=== PATIENT | male | born 1980 ===

== ENCOUNTER 2017-01-13 00:08 | Emergency (ER) | payer BC ==
[2017-01-13] MEDS ORDERED: Haloperidol 1 MG Tab PO ONE (00:22)
--- NOTE | 2017-01-13 00:35 | EDM.PDOC ---
ED HPI Behavioral Health - General Chief Complaint: Behavioral/Psych Stated Complaint: suicidal Time Seen by Provider: 01/13/17 00:08 Source of Information: Reports: Patient, EMS Exam Limitations: Reports: Altered mental status - History of Present Illness INITIAL COMMENTS - FREE TEXT/NARRATIVE: Patient has been having mental health issues for at least a year, and presents with the C/O hearing multiple voices that are "good" and "bad". He took a power drill and abraded his right wrist and right side of neck tonight. He asked for the garnett room worker to put cuffs on him because he couldn't trust himself. Unclear if he is suicidal. Lives with mother. Onset of Symptoms: Reports: unknown/unsure Severity: moderate Context, Behavioral Health: Reports: other (lives with mother) Associated Symptoms: Reports: decreased concentration, hallucinations, auditory , insomnia, suicidal thought, other (memory loss, feeling of lost time, generally confused) - Related Data Allergies Allergy/AdvReac Type Severity Reaction Status Date / Time No Known Allergies Allergy Verified 01/13/17 00:25 Home Medications: Home Meds . [No Known Home Meds] 01/13/17 [History] ED ROS GENERAL - Review of Systems Review Of Systems: See Below Constitutional: Reports: no symptoms HEENT: Reports: No symptoms Respiratory: Reports: No Symptoms Cardiovascular: Reports: No symptoms Endocrine: Reports: no symptoms GI/Abdominal: Reports: No symptoms : Reports: no symptoms Musculoskeletal: Reports: no symptoms Skin: Reports: no symptoms Neurological: Reports: No Symptoms Psychiatric: Reports: Suicidal ideation, Other (auditory hallucinations) Hematologic/Lymphatic: Reports: no symptoms Immunologic: Reports: no symptoms Free text/narrative/comment: Not a terribly reliable history. Gets confused and tangential easily. ED EXAM, BEHAVIORAL HEALTH - Physical Exam Exam: See Below Exam Limited By: Altered mental status General Appearance: alert, WD/WN, no apparent distress Eye Exam: bilateral eye: EOMI Ears: normal external exam, hearing grossly normal Nose: normal inspection, normal mucosa Throat/Mouth: Normal inspection, Normal oropharynx, Normal voice, No airway compromise Head: atraumatic, normocephalic Neck: normal inspection, supple, non-tender, full range of motion. No: lymphadenopathy (L), lymphadenopathy (R), thyromegaly Respiratory/Chest: no respiratory distress, lungs clear, normal breath sounds, no accessory muscle use Cardiovascular: normal peripheral pulses, regular rate, rhythm, no JVD, no murmur GI/Abdominal: soft, non tender, no organomegaly. No: distended, guarding Back Exam: normal inspection, full range of motion. No: CVA tenderness (L), CVA tenderness (R) Extremities: normal inspection, normal range of motion, non-tender, normal capillary refill Neurological: alert, CN II-XII intact, normal gait, no motor/sensory deficits, oriented x 3, disoriented to time, inattentive, memory loss recent events. No: ataxia, tongue deviation (L), tongue deviation (R) Psychiatric: alert, flat affect, disoriented (mostly to time), inattentive ( zones out (listening to voices)), suicidal thoughts, tangential thoughts, auditory hallucinations (significant), visual hallucinations (delusions more accurately), other (thought process and content significantly altered). No: depressed mood, incoherent, restless, tearful, agitated, non-communicative, poor eye contact, uncooperative, withdrawn, flight of ideas, homicidal thoughts , phobic, muslim delusions, suicidal plan, grandiose thoughts, pressured speech, paranoid thoughts, threatening behavior Skin Exam: Warm, Dry, Intact, Normal color, No rash, Other (very minor abrasion on right wrist and right/anterior neck - Look at lease a day old) COURSE, BEHAVIORAL HEALTH COMP - Course Vital Signs: Last Vital Signs Temp 36.8 C 01/13/17 00:59 Pulse 83 01/13/17 00:57 Resp 16 01/13/17 00:57 BP 142/88 H 01/13/17 00:57 Pulse Ox 98 01/13/17 00:57 Orders, Labs, Meds: Active Orders 24 hr Category Date Time Status RPR [REF] Stat Lab 01/13/17 00:45 Received Laboratory Tests 01/13/17 01/13/17 01/13/17 Range/Units 00:45 00:45 00:50 WBC 9.2 (4.0-10.2) K/uL RBC 5.73 H (4.33-5.41) M/uL Hgb 17.4 H (13.1-16.8) g/dL Hct 51.2 H (39.0-49.0) % MCV 89.4 (84.0-98.0) fL MCH 30.4 (28.2-33.3) pg MCHC 34.0 (31.7-36.0) g/dL RDW 13.3 (11.2-14.1) % Plt Count 249 (150-350) K/uL Neut % (Auto) 56.9 (45.0-80.0) % Lymph % (Auto) 32.7 (10.0-50.0) % Zapata % (Auto) 9.3 (2.0-14.0) % Eos % (Auto) 0.4 (0.0-5.0) % Baso % (Auto) 0.7 (0.0-2.0) % Neut # (Auto) 5.21 (1.40-7.00) K/uL Lymph # (Auto) 2.99 (0.50-3.50) K/uL Zapata # (Auto) 0.85 (0.00-1.00) K/uL Eos # (Auto) 0.04 (0.00-0.50) K/uL Baso # (Auto) 0.06 (0.00-0.20) K/uL Sodium 143 (136-145) mmol/L Potassium 3.9 (3.5-5.1) mmol/L Chloride 106 (98-107) mmol/L Carbon Dioxide 27.5 (21.0-32.0) mmol/L BUN 12 (7-18) mg/dL Creatinine 0.84 (0.51-1.17) mg/dL Est Cr Clr Drug Dosing 129.48 mL/min Estimated GFR (MDRD) > 60 mL/min Glucose 105 (74-106) mg/dL Calcium 9.3 (8.5-10.1) mg/dL Total Bilirubin 0.7 (0.2-1.0) mg/dL AST 26 (15-37) U/L ALT 52 (12-78) U/L Alkaline Phosphatase 61 (46-116) IU/L Total Protein 8.1 (6.4-8.2) g/dL Albumin 4.5 (3.4-5.0) g/dL TSH, Ultra Sensitive 1.003 (0.358-3.740) mIU/mL Specimen Type Urine Color Urine Appearance Urine pH (5.0-9.0) Ur Specific Halls (1.005-1.030) Urine Protein (NEGATIVE) mg/dL Urine Glucose (UA) (NEGATIVE) mg/dL Urine Ketones (NEGATIVE) mg/dL Urine Occult Blood (NEGATIVE) Urine Nitrite (NEGATIVE) Urine Bilirubin (NEGATIVE) Urine Urobilinogen (0.2-1.0) E.U./dL Ur Leukocyte Esterase (NEGATIVE) Urine RBC /HPF Urine WBC /HPF Ur Epithelial Cells /LPF Urine Bacteria (NONE TO FEW) /HPF Urine Mucus (NEGATIVE) /LPF Urine Opiates Screen Negative (NEGATIVE) Urine Methadone Screen Negative (NEGATIVE) U Acetaminophen Screen Negative (NEGATIVE) Ur Barbiturates Screen Negative (NEGATIVE) Ur Tricyclics Screen Negative (NEGATIVE) Ur Phencyclidine Scrn Negative (NEGATIVE) Ur Amphetamine Screen Negative (NEGATIVE) U Methamphetamines Scrn Negative (NEGATIVE) U Benzodiazepines Scrn Negative (NEGATIVE) U Cocaine Metab Screen Negative (NEGATIVE) U Marijuana (THC) Screen Positive H (NEGATIVE) Ethyl Alcohol 0.001 (0.000-0.080) g/dL 01/13/17 Range/Units 00:50 WBC (4.0-10.2) K/uL RBC (4.33-5.41) M/uL Hgb (13.1-16.8) g/dL Hct (39.0-49.0) % MCV (84.0-98.0) fL MCH (28.2-33.3) pg MCHC (31.7-36.0) g/dL RDW (11.2-14.1) % Plt Count (150-350) K/uL Neut % (Auto) (45.0-80.0) % Lymph % (Auto) (10.0-50.0) % Zapata % (Auto) (2.0-14.0) % Eos % (Auto) (0.0-5.0) % Baso % (Auto) (0.0-2.0) % Neut # (Auto) (1.40-7.00) K/uL Lymph # (Auto) (0.50-3.50) K/uL Zapata # (Auto) (0.00-1.00) K/uL Eos # (Auto) (0.00-0.50) K/uL Baso # (Auto) (0.00-0.20) K/uL Sodium (136-145) mmol/L Potassium (3.5-5.1) mmol/L Chloride (98-107) mmol/L Carbon Dioxide (21.0-32.0) mmol/L BUN (7-18) mg/dL Creatinine (0.51-1.17) mg/dL Est Cr Clr Drug Dosing mL/min Estimated GFR (MDRD) mL/min Glucose (74-106) mg/dL Calcium (8.5-10.1) mg/dL Total Bilirubin (0.2-1.0) mg/dL AST (15-37) U/L ALT (12-78) U/L Alkaline Phosphatase (46-116) IU/L Total Protein (6.4-8.2) g/dL Albumin (3.4-5.0) g/dL TSH, Ultra Sensitive (0.358-3.740) mIU/mL Specimen Type Urinvoid Urine Color Leonor Urine Appearance Slightly cloudy Urine pH 6.0 (5.0-9.0) Ur Specific Halls >= 1.030 (1.005-1.030) Urine Protein Trace H (NEGATIVE) mg/dL Urine Glucose (UA) Negative (NEGATIVE) mg/dL Urine Ketones 15 H (NEGATIVE) mg/dL Urine Occult Blood Trace-intact H (NEGATIVE) Urine Nitrite Negative (NEGATIVE) Urine Bilirubin Small H (NEGATIVE) Urine Urobilinogen 2.0 H (0.2-1.0) E.U./dL Ur Leukocyte Esterase Trace H (NEGATIVE) Urine RBC 5-10 H /HPF Urine WBC 30-40 H /HPF Ur Epithelial Cells Few /LPF Urine Bacteria Few (NONE TO FEW) /HPF Urine Mucus Many H (NEGATIVE) /LPF Urine Opiates Screen (NEGATIVE) Urine Methadone Screen (NEGATIVE) U Acetaminophen Screen (NEGATIVE) Ur Barbiturates Screen (NEGATIVE) Ur Tricyclics Screen (NEGATIVE) Ur Phencyclidine Scrn (NEGATIVE) Ur Amphetamine Screen (NEGATIVE) U Methamphetamines Scrn (NEGATIVE) U Benzodiazepines Scrn (NEGATIVE) U Cocaine Metab Screen (NEGATIVE) U Marijuana (THC) Screen (NEGATIVE) Ethyl Alcohol (0.000-0.080) g/dL Medications Discontinued Medications Generic Name Dose Route Start Last Admin Trade Name Freq PRN Reason Stop Dose Admin Azithromycin 1,000 mg 01/13/17 01:12 01/13/17 01:56 Zithromax PO 01/13/17 01:13 1,000 mg ONETIME ONE Administration Ceftriaxone Sodium 0.25 gm 01/13/17 01:11 01/13/17 02:09 Rocephin IM 01/13/17 01:12 0.25 gm ONETIME ONE Administration Haloperidol 10 mg 01/13/17 00:22 01/13/17 00:37 Haldol PO 01/13/17 00:23 10 mg ONETIME ONE Administration Lidocaine HCl Confirm 01/13/17 01:41 01/13/17 07:13 Xylocaine-Mpf 1% Administered 01/13/17 01:42 5 ml Dose Administration 5 ml .ROUTE .STK-MED ONE Temazepam 30 mg 01/13/17 02:19 01/13/17 02:22 Restoril PO 01/13/17 02:20 30 mg BEDTIME ONE Administration Re-Assessment/Re-Exam: No psych beds available at this time, including [facility]. [facility] may have a bed available in the morning. Will continue to look for a bed and keep patient as an ER patient until then. Medical Clearance: 01/13/17 02:21 cleared for psych evaluation Departure - Departure Time of Disposition: 08:00 Disposition: Still A Patient 30 Condition: fair Clinical Impression: Hallucinations, Self-harm Forms: ED Department Discharge - Problem List Review Problem List Initiated/Reviewed/Updated: No - My Orders Last 24 Hours: My Active Orders 01/13/17 00:45 RPR [REF] Stat - Assessment/Plan Last 24 Hours: My Active Orders 01/13/17 00:45 RPR [REF] Stat Assessment:: 1. Suicidal Ideation, significant auditory hallucinations and alteration of thought process. 2. UTI c/w urethritis 3. Awaiting placement with Psych. Turned over to Dr. España at 8 am Plan: Inpatient Psych treatment Haldol 10mg po given Urethritis - RPR pending
[2017-01-13] MEDS ORDERED: cefTRIAXone 1 GM Vial IM ONE (01:11)
[2017-01-13] MEDS ORDERED: Azithromycin 250 MG Tab PO ONE (01:12)
[2017-01-13 01:18] LABS: CHLORIDE,CL 106 mmol/L (98-107); SODIUM,NA 143 mmol/L (136-145)
[2017-01-13] MEDS ORDERED: Temazepam 15 MG Cap PO ONE (02:19)
--- NOTE | 2017-01-13 10:38 | PCM.SN ---
- Free Text/Narrative Note: Telephone consultation at 10:[address] Sky, psychiatrist at [facility] in [place], who does accept the patient for further inpatient treatment and evaluation, with no further treatment recommendations given. He is aware of planned patient transfer via private automobile by his mother. Patient is medically stable for private vehicle transfer with extreme difficulty of obtaining a bed for this patient. Dr. Sky is requesting that the patient first be seen in their emergency room and will contact them for me concerning patient's transfer. Patient is alert although still somewhat confused thinking that he is in a dream likely secondary to Haldol given in our emergency room. He does agree to voluntary admission for psychiatric treatment, etc with no aggressive behavior, etc. at this time. Note current UTI with initial therapy in our emergency room as per emergency room note. Drug screen positive for marijuana with the patient denies any other illicit drug use recently. Note previous inpatient treatment for psychosis and 2015. Extensive precautions were given to the patient and his mother, who are in agreement with the treatment plan. Patient discharged at 12:[address] Barron had previously signed a commital form, however the patient is voluntarily seeking treatment at this time. Patient disposition: Transferred to acute care hospital Patient condition at discharge: Fair
[2017-01-13 13:37] VITALS: BP 115/63
== END 2017-01-13 12:00 | disposition still patient (30) ==
LOC: LL.ED 00:08
DX: R45.851 Suicidal ideations (principal); R44.0 Auditory hallucinations; S60.811A Abrasion of right wrist, initial encounter; S10.81XA Abrasion of other specified part of neck, initial encounter; W31.89XA Contact with other specified machinery, initial encounter
CPT/HCPCS: 36415; 80053; 80305; 81001; 84443; 85025; 86592; 96372; 99285; A9270; G0480; J0696